=== PATIENT | female | born 1970 | race Caucasian/White ===

== ENCOUNTER → 2023-01-15 14:06 | Outpatient (CLI) | payer OTHER, SELFPAY ==
--- NOTE | 2023-01-15 | DI.MG.S_ITS ---
BILATERAL DIGITAL DIAGNOSTIC MAMMOGRAM 3D/2D: 01/15/2023 CLINICAL: Left breast pain. Comparison is made to exam dated: 08/15/2005 [facility]. Both breasts are heterogeneously dense, which may obscure small masses (category c / 51-75% glandular tissue). No significant masses, calcifications, or other findings are seen in either breast. IMPRESSION: NEGATIVE There is no mammographic abnormality seen in the left breast to correspond with the diffuse breast pain, however, clinical followup is recommended. There is no mammographic evidence of malignancy. Return to annual mammogram screening schedule is recommended. Based on the Tyrer Cuzick model (a risk assessment model) the patient's lifetime risk is 10.4% and her 10 year risk is 2.4%. According to the ACR, ACS, and NCCN guidelines, an annual breast MRI exam along with mammogram is recommended if the patient's lifetime risk is 20% or greater. This exam was interpreted at Station ID: [id number]. NOTE: For mammograms, a report in lay terms will be sent to the patient. Approximately 15% of breast malignancies will not be visualized mammographically. In the management of a palpable breast mass, a negative mammogram must not discourage biopsy of a clinically suspicious lesion. Electronically Signed By: Ritika garcia/:01/15/2023 15:21:59 letter sent: Clinical Evaluation ACR BI-RADS Category 1: Negative 3341F
== END ==
PROVIDERS: PCP Student in an Organized Health Care Education/Training Program; Referring Provider Student in an Organized Health Care Education/Training Program; Visit Provider Student in an Organized Health Care Education/Training Program
DX: N64.4 Mastodynia (principal)
CPT/HCPCS: 77066; G0279

== ENCOUNTER 2023-11-18 14:17 | Emergency (ER) | payer OTHER, SELFPAY ==
[2023-11-18 14:22] VITALS: BP 117/61; PULSE 79; RESP 18; TEMP 36.6; O2SAT 100; BMI 27.6
[2023-11-18 14:29] VITALS: BP 105/69; PULSE 81; O2SAT 97
[2023-11-18 14:30] VITALS: BP 107/60; PULSE 81; O2SAT 98
--- NOTE | 2023-11-18 14:41 | ED.GENADULT ---
HPI - General Adult General Chief complaint: Abdominal Pain Stated complaint: Constipated Time Seen by Provider: 11/18/23 14:37 Source: patient Mode of arrival: Ambulatory History of Present Illness HPI narrative: 53-year-old woman recently started on teriparatide and increased dose to 5 mg last week. She has since become increasingly constipated with no bowel movement for approximately 3 days. She did try a stool softener, self disimpaction and half an enema at home but was not having any luck with increasing perianal pain. She comes in for further evaluation Related Data Allergies Allergy/AdvReac Type Severity Reaction Status Date / Time codeine AdvReac ITCHING Verified 11/18/23 14:22 Review of Systems Review of Systems Narrative: Pertinent positive and negative findings as per HPI Patient History Social History Smoking Status: Never smoker Smoking Status: Never smoker Substance Use Type: does not use Exam Initial Vital Signs Initial Vital Signs: Vital Signs Temperature 97.8 F 11/18/23 14:22 Pulse Rate 79 11/18/23 14:22 Respiratory Rate 18 11/18/23 14:22 Blood Pressure 117/61 11/18/23 14:22 Pulse Oximetry 100 11/18/23 14:22 Oxygen Delivery Method Room Air 11/18/23 14:22 General: Alert appropriate in no acute distress Respiratory: Able to speak in full sentences, no obvious respiratory distress Skin: No obvious rashes, warm and dry Abdomen is soft Rectal exam has moderately firm brown stool that is relatively easily disimpacted Neurologic: Grossly intact no obvious asymmetries or abnormalities Psych: appropriate insight and affect, cooperative Course Vital Signs Vital signs: Vital Signs - 8 hr 11/18/23 14:22 11/18/23 14:29 11/18/23 14:29 Temperature 97.8 F Pulse Rate 79 81 Respiratory Rate 18 Blood Pressure 117/61 105/69 Pulse Oximetry 100 97 Oxygen Delivery Method Room Air 11/18/23 14:30 11/18/23 14:30 Temperature Pulse Rate 81 Respiratory Rate Blood Pressure 107/60 Pulse Oximetry 98 Oxygen Delivery Method Medical Decision Making [facility] Narrative Medical decision making narrative: CC: Constipation Complicating co-morbidities: Recently started teriparatide Data collected from: patient Differential considered: Constipation, bowel obstruction Exam documented above, pertinent findings include: Abdomen is soft, moderately firm stool in the rectal vault is evacuated manually. Treatments: Manual bowel disimpaction. After the initial firm stool was able to be removed, she was successfully able to have a larger bowel movement in the bathroom Discussion: 53-year-old woman with new medication causing constipation. Constipation significantly improved at this point will ask her to begin MiraLax and continue it daily. We talked about appropriate dosing, dosing being enough to have at least 1 soft bowel movement daily. She is safe for discharge Discharge Plan Departure Patient Disposition: Home Clinical Impression: Constipation Qualifiers: Constipation type: unspecified constipation type Qualified Code(s): K59.00 - Constipation, unspecified Instructions: DI for Constipation Activity Restrictions/Additional Instructions: Thank you for coming in today We are able to get out the very firm stool and hopefully you are going to be able to have 1 or 2 more bowel movements that we will continue to become more and more soft. I would recommend at least 1 cap full of MiraLax daily. The appropriate dose of MiraLax is however much is required to have at least 1 soft stool daily. You can not overdose on MiraLax. If you find that you are getting worse or develop any new symptoms, please feel free to return to the emergency department for further evaluation. Referrals: Katy Martin PA-C [Primary Care Provider] - Stand Alone Forms: Patient Portal/API
[2023-11-18 15:31] VITALS: BP 115/58; PULSE 72; O2SAT 96
== END 2023-11-18 15:20 | disposition home or self-care (01) ==
PROVIDERS: Emergency Provider Emergency Medicine; PCP Student in an Organized Health Care Education/Training Program
DX: K59.00 Constipation, unspecified (principal); T50.995A Adverse effect of other drugs, medicaments and biological substances, initial encounter
CPT/HCPCS: 99281; 99282